=== PATIENT | male | born 1995 | race Caucasian/White ===

== ENCOUNTER 2022-12-03 20:32 | Emergency (ER) | payer BC, OTHER ==
[2022-12-03] MEDS ORDERED: Lidocaine 1% 10 ML MDV INJECT ONE (21:17)
== END 2022-12-03 22:34 | disposition home or self-care (01) ==
LOC: JD.ED 20:32
DX: S01.81XA Laceration without foreign body of other part of head, initial encounter (principal); Z72.0 Tobacco use; W22.8XXA Striking against or struck by other objects, initial encounter
CPT/HCPCS: 12013; 13131; 99282; 99283; J3490